=== PATIENT | male | born 1990 | race Hispanic/Latino ===

== ENCOUNTER 2017-06-11 15:29 | Emergency (ER) | payer BC ==
[~2017-06-11] VITALS: Ht 165.1 cm; Wt 68.5 kg
[2017-06-11 17:06] LABS: BASOPHIL COUNT 0.1 K/uL (0-0.1); EOSINOPHIL (%) 1.5 % (0-5); EOSINOPHIL COUNT 0.3 K/uL (0-0.3); HEMATOCRIT 39.1 % (38.0-50.0); IMMATURE GRANULOCYTE (%) 0.5 % (0.0-0.7); IMMATURE GRANULOCYTE COUNT 0.1 K/uL; INSTRUMENT ABS NEUTROPHIL CT 14.8 K/uL; LYMPHOCYTE COUNT 0.8 K/uL (1.0-2.8); MCH 29.4 PG (29.0-34.0); MCHC 34.8 G/DL (30.0-36.0); MCV 84.4 FL (86-99); MEAN PLAT.VOLUME 9.9 uM^3 (9.0-12.4); MONOCYTE (%) 6.7 % (3-12); MONOCYTE COUNT 1.2 K/uL (0-0.8); NEUTROPHIL (%) 86.3 % (45-76); NEUTROPHIL COUNT 14.8 K/uL (1.8-6.4); PLATELET COUNT 232 K/uL (156-360); RBC DIS.WIDTH-SD 36.4 % (39-53); RED BLOOD COUNT 4.63 M/uL (4.00-5.50); WHITE BLOOD COUNT 17.1 K/uL (4.1-10.2)
[2017-06-11 17:15] LABS: CHLORIDE 107 mEq/L (99-109); POTASSIUM 3.7 mEq/L (3.7-5.4); SODIUM 137 mEq/L (136-147)
[2017-06-11 17:16] LABS: ADD MIUA? NO; BILIRUBIN NEGATIVE; BLOOD NEGATIVE; COLOR YELLOW ((YELLOW)); GLUCOSE (STRIP) NEGATIVE; KETONES NEGATIVE; LEUKOCYTES NEGATIVE; NITRITE NEGATIVE; PROTEIN (STRIP) NEGATIVE; SPECIFIC GRAVITY 1.015 (1.000-1.030); UROBILINOGEN 0.2 MG/DL (0.2-1.0)
[2017-06-11 17:17] LABS: GLUCOSE 121 mg/dL (70-99)
[2017-06-11 17:19] LABS: ANION GAP 7 MEQ/L (2-14); TOTAL BILIRUBIN 0.6 mg/dL (0.0-1.0)
[2017-06-11 17:21] LABS: ALKALINE PHOSPHATASE 94 IU/L (3-129); GFR ESTIMATE (CALCULATED) > 59 mL/min/ (58.99-99999)
[2017-06-11 17:22] LABS: UREA NITROGEN (BUN) 12 mg/dL (9-23)
[2017-06-11 17:23] LABS: DIRECT BILIRUBIN 0.2 mg/dL (0.0-0.3)
[2017-06-11 17:24] LABS: LIPASE 29 U/L (1.0-51.0)
[2017-06-11 17:34] LABS: INTERNAL CONTROL VALID? YES; MONOSPOT (MONONUCLEOSIS SEROL) NEGATIVE
[2017-06-11] MEDS ORDERED: MOTRIN800 MG PO (19:12)
[2017-06-11 19:52] VITALS: BP 97/53
[2017-06-13 10:40] LABS: ANTI-EPSTEIN-BARR NUCLEAR AG POSITIVE; ANTI-EPSTEIN-BARR VCA IGG POSITIVE; ANTI-EPSTEIN-BARR VCA IGM NEGATIVE
== END 2017-06-11 19:55 | disposition home or self-care (01) ==
LOC: EME 15:29
PROVIDERS: Physician Assistant
DX: J11.1 Influenza due to unidentified influenza virus with other respiratory manifestations (principal); R10.11 Right upper quadrant pain; R07.89 Other chest pain
CPT/HCPCS: 74022; 76705; 80048; 80076; 81003; 83690; 85025; 86308; 86664; 86665; 87040; 87502; 93005; 99281; 99285

== ENCOUNTER 2017-08-18 15:43 | Emergency (ER) | payer BC ==
[~2017-08-18] VITALS: Ht 165.1 cm; Wt 65.0 kg
[~2017-08-18 15:43] MED LIST: MOTRIN800 MG PO
[2017-08-18] MEDS ORDERED: ULTRACET1 TABLET PO (16:30)
[2017-08-18] MEDS ORDERED: VIBRAMYCIN100 MG PO (16:30)
[2017-08-18] MEDS ORDERED: INDOCIN50 MG PO (16:30)
[2017-08-18] MEDS ORDERED: AUGMENTIN875 MG PO (16:30)
[2017-08-18] MEDS ORDERED: BACTROBAN OINTM22 GM TP (16:33)
[2017-08-18 16:45] VITALS: BP 127/91
== END 2017-08-18 16:46 | disposition home or self-care (01) ==
LOC: EME 15:43
DX: L03.211 Cellulitis of face (principal); L02.01 Cutaneous abscess of face; K02.9 Dental caries, unspecified; Z86.14 Personal history of Methicillin resistant Staphylococcus aureus infection
CPT/HCPCS: 87070; 87075; 87077; 87147; 87186; 87205; 99281; 99283